=== PATIENT | male | born 1990 | race Caucasian/White ===

== ENCOUNTER → 2016-11-28 | Outpatient (CLI) | payer BC ==
--- NOTE | 2016-11-28 15:57 | MOTOR CONDUCTION ---
CLINICAL DIAGNOSIS: Excessive sleepiness. EEG DIAGNOSIS: Essentially normal during wakefulness and brief duration of drowsiness. DESCRIPTION OF TRACING: This EEG was done n the laboratory and is of excellent technical quality with few or no muscle or movement artifacts. Simultaneous video analysis of patient movement and behavior was obtained. Photic stimulation was performed. Hyperventilation was not. Episodes of drowsiness are seen but were never sustained. Fully developed stages of light sleep never developed. Under these conditions, there is evidence for a normal appearing background rhythm in the alpha range of up to 10 Hz of maximum frequency and 30 microvolts of maximum amplitude. This is maximum posterior head regions bilaterally symmetrical. Polymorphic mid frequency theta activity seen over all head regions without clear focal or regional predominance. Anterior head region maximum bilaterally symmetrical low voltage fast activity in the beta range is present. Photic stimulation provokes modest driving response without a photomyogenic or photoparoxysmal component. Episodes of drowsiness are recorded, but these are never sustained and the events are characterized by a slight buildup of slow wave activity typical of the drowsy state. Sleep spindles and K complexes are never seen At no time during the waking or drowsy tracing is there evidence for potentially epileptogenic activity in the form of polyspike or spike wave bursts, focal sharp waves or focal spikes. INTERPRETATION: This electroencephalogram is essentially normal during wakefulness without evidence for focal or generalized encephalopathy and without evidence for potentially epileptogenic activity. MTDD
== END | disposition home or self-care (01) ==
LOC: C.NEUR 07:50
PROVIDERS: ATTEND Nurse Practitioner Adult Health
DX: G47.10 Hypersomnia, unspecified (principal); R68.89 Other general symptoms and signs